=== PATIENT | female | born 1940 | race Caucasian/White ===

== ENCOUNTER 2023-06-12 09:39 | Outpatient (OUT) | payer MEDICARE, SELFPAY ==
--- NOTE | 2023-06-12 09:40 | VEIN_ITS ---
Patient Name: GOLD FERRARA MR#: [id number] : 1940 Exam Date: 06/12/2023 Ordering Doctor: DR ARAVIND NAILS M.D. RADIOLOGY REPORT PROCEDURE: FACILITY EST COMPREHENSIVE VEIN CENTER - OFFICE VISIT INITIAL COMPARISON: None. PROGRESS NOTES: [age] year old female who presents with a 3 year history of lower extremity bulging veins, stinging pain, skin discoloration, and recent onset decreased feeling in bottom of right foot. The patient's symptoms are otherwise symmetric bilaterally. There has been a progression of symptoms over time. This increases with prolonged leg dependency. The patient describes an improvement with rest, elevation, compression stockings. The patient denies any signs and symptoms to suggest arterial ischemia. The patient describes a family history of cancer; no significant vein disease. The patient has drinking and smoking history of : None. Patient has a past medical history significant for congestive heart failure, shortness of breath, obesity, hypertension, lymphoma, pulmonary emboli, deep vein thrombosis. The patient has prior history of deep venous thrombus or pulmonary embolus. See separate history and physical for medication list. Prior treatment for varicose veins. After review of nurse notes, history and physical exam I discussed at length the pathophysiology of venous hypertension and possible treatments, therapies and strategies available. We discussed at length the importance of elevating the lower extremities above the level of the heart, increased physical activity and compression stocking use. Ultrasound venous reflux study performed today was discussed at length with the patient. The report demonstrates prior ablation of right great saphenous vein. Abnormally dilated incompetent right small saphenous vein, bilateral anterior accessory saphenous veins, and left great saphenous vein.. PHYSICAL EXAM: The right leg demonstrates a few visible varicosities, a few scattered spider veins, no ulceration, mild edema, distal lower extremity skin discoloration. The left leg demonstrates several varicosities, a few scattered spider veins, old healed skin wounds which the patient describes as being due to prior medication that she was taking but has discontinued and the wounds healed, mild edema, distal lower extremity skin discoloration. Both thighs, legs and feet were symmetrically warm to the touch. Good posterior tibial and dorsalis pedis pulses were present bilaterally. VEIN/ Facility EST Comprehensive IMPRESSION: 1. Bilateral lower extremity venous insufficiency 2. Bilateral lower extremity varicose veins 3. Mild bilateral lower extremity subcutaneous edema 4. No flow significant arterial disease 5. CEAP: C4a, AP, , [place] PLAN: 1. Continued use of compression stockings 2. Elevated legs and increased physical activity symptomatic relief 3. Patient's major concern is development of numbness on bottom of right foot. I do not suspect that the patient's chronic vein disease is the causal factor. 4. Patient does not desire treatment of incompetent varicose veins in light of ongoing other health issues and if it is not going to solve the new numbness on bottom of right foot. The risks and benefits were discussed with the patient and I concur with the patient. 5. Patient will follow-up for treatment of veins if she notices increasing size of bulging veins, leg pain worsens, or there are further skin changes or development of ulcers. Nurse notes, history and physical were reviewed and confirmed, see attached forms. The nurse was present throughout the physical exam and consultation Dictated by: Alok Anderson M.D. on 06/12/2023 at 11:49 Approved by: Alok Anderson M.D. on 06/12/2023 at 12:04
--- NOTE | 2023-06-12 09:41 | VEIN_ITS ---
Patient Name: GOLD FERRARA MR#: [id number] : 1940 Exam Date: 06/12/2023 Ordering Doctor: DR ARAVIND NAILS M.D. RADIOLOGY REPORT PROCEDURE: VC EXT VENOUS REFLUX ALBERTO LMTD COMPARISON: None. INDICATIONS: I83.813 Bilateral painful varicose veins TECHNIQUE: Duplex imaging of the lower extremity to assess the deep and superficial venous system for the presence of deep or superficial venous incompetence and to document the location and severity of disease. The study includes evaluation of the great saphenous vein (GSV), anterior accessory saphenous vein (AASV) and small saphenous vein (SSV). Patient scanned in reverse Trendelenburg and standing. FINDINGS: RIGHT LOWER EXTREMITY: Saphenofemoral Junction Reflux: Yes 6.8mm 1.5 sec GSV: Diam (mm) Reflux/ Time (sec) Proximal Thigh N/A Mid Thigh N/A Distal Thigh N/A Prox Calf N/A Mid Calf N/A Saphenopopliteal Junction Reflux: 6.0mm Yes 1.7 SSV: Proximal Calf 6.0 Yes 1.2 Mid Calf 4.6 No AASV: Proximal Thigh 6.0 Yes 0.6 Mid Thigh 5.8 Yes 1.8 Distal Thigh Thrombi: No acute or chronic thrombus visualized Compressibility: Normal Flow: Normal Preforator: Dist/med calf 2.6mm with 0s reflux. Tech Note: Incompetent AASV and SSV. GSV previously treated. Patent varicose vein mid/med calf 3.9mm with 1.3s reflux. Patent varicose vein medial knee 3.3mm with 0.8s reflux. Patent varicose vein dist/med thigh 4.6mm with 2.1s reflux. LEFT LOWER EXTREMITY: Saphenofemoral Junction Reflux: Yes 9.8 mm 2.2 sec GSV: Diam (mm) Reflux/Time (sec) Proximal Thigh 6.9 Yes 2.2 Mid Thigh 5.0 Yes 1.0 Distal Thigh 5.3 Yes 2.8 Prox Calf 4.2 Yes 2.9 Mid Calf 4.0 No Saphenopopliteal Junction Relux: mm N/A SSV: Proximal Calf N/A Mid Calf N/A AASV: Proximal Thigh 6.0 Yes 0.8 Mid Thigh 4.7 Yes 1.6 Distal Thigh Thrombi: No acute or chronic thrombus visualized Compressibility: Normal Flow: Normal Ophthalmic Tech: No perforators visualized Tech Note: Incompetent AASV and GSV. SSV previously treated. Patent varicose vein prox/med calf 3.3mm with 1.4s reflux. Patent varicose vein mid/med thigh 4.8mm with 2.5s reflux. CONCLUSION: 1. Abnormally dilated and incompetent right small saphenous, right anterior accessory saphenous, left great saphenous, and left anterior accessory saphenous veins. Dictated by: Alok Anderson M.D. on 06/12/2023 at 10:37 Approved by: Alok Anderson M.D. on 06/12/2023 at 11:49
== END 2023-06-12 09:40 | disposition home or self-care (01) ==
LOC: VC 09:40
PROVIDERS: PCP Radiology Diagnostic Radiology; Visit Provider Radiology Diagnostic Radiology
DX: I83.813 Varicose veins of bilateral lower extremities with pain (principal)
CPT/HCPCS: 93970; G0463

== ENCOUNTER 2023-06-16 14:51 | Outpatient (OUT) | payer MEDICARE, SELFPAY ==
--- NOTE | 2023-06-16 | VEIN_ITS ---
Patient Name: GOLD FERRARA MR#: [id number] : 1940 Exam Date: 06/16/2023 Ordering Doctor: DR YASMANY HOUSER M.D. RADIOLOGY REPORT PROCEDURE: VC FACILITY EST LMTD VEIN CENTER - OFFICE VISIT FOLLOW UP COMPARISON: None. PROGRESS NOTES: The patient complains of bilateral leg pain with asymmetric new pain and swelling of the left medial and posterior upper to mid calf. The patient has a concern for deep vein thrombus as well as cellulitis. The patient was referred by her primary care physician for possible deep vein thrombus Ultrasound demonstrates no deep vein thrombus. Subcutaneous edema is observed. Physical exam demonstrates marked subcutaneous edema with skin thickening and extensive hemosiderin staining bilateral below knee, left greater than right. In the region of the patient's interest in the left calf there is asymmetric subcutaneous swelling. Ultrasound demonstrates no focal mass or deep vein thrombus in this region At this time I do not feel that the patient has cellulitis. The patient's pain is likely related to ongoing venous disease and subcutaneous edema possible lymphedema. The patient does not have compression stockings VEIN/ Facility EST LMTD IMPRESSION: 1. No definite evidence of cellulitis, superficial or deep vein thrombus. 2. Extensive venous disease with subcutaneous edema PLAN: Micro foam chemical ablation incompetent varicose veins Nurse notes, history and physical were reviewed and confirmed, see attached forms. The nurse was present throughout the physical exam and consultation Dictated by: Yasmany Houser MD on 06/16/2023 at 15:58 Approved by: Yasmany Houser MD on 06/16/2023 at 16:00
--- NOTE | 2023-06-16 14:56 | VEIN_ITS ---
[address] [address] Patient Name: GOLD FERRARA MRN: [id number] date: 1940 Sex: F Assigned Patient Location: Current Patient Location: Accession/Order Number: [id number] Exam Date: 06/16/2023 15:05 Report Date: 06/16/2023 15:55 At the request of: ARACELY SHOEMAKER Procedure: VC EXT Venous ALBERTO Limited EXAM: VC EXT Venous ALBERTO Limited HISTORY: M79.662 Pain in left leg COMPARISON: None. TECHNIQUE: Grayscale, color and Doppler FINDINGS: Region: Bilateral legs Thrombus: None Flow: Normal Augmentation: Normal Compressibility: Normal Other: Mild to moderate bilateral subcutaneous edema left greater than right VEIN/VC EXT Venous ALBERTO Limited IMPRESSION: No deep or superficial vein thrombus identified in the legs Electronically authenticated by: ARAVIND NAILS Date: 06/16/2023 15:55
== END 2023-06-16 14:52 | disposition home or self-care (01) ==
LOC: VC 14:51
PROVIDERS: PCP Radiology Diagnostic Radiology
DX: M79.662 Pain in left lower leg (principal); I83.813 Varicose veins of bilateral lower extremities with pain
CPT/HCPCS: 93970; G0463

== ENCOUNTER 2023-11-27 13:36 | Outpatient (OUT) | payer MEDICARE, SELFPAY ==
--- NOTE | 2023-11-27 07:34 | VEINCLINIC_ITS ---
Vital Signs 11/27/23 14:45 11/27/23 15:37 Height 5 ft 6 in Weight 113.398 kg BP 112/56 BP Location Left Brachial BP Position Sitting BP Cuff Size Adult BP Source Manual Cuff Respiration 18 Pulse 75 Pulse Source Monitor Pulse Oximetry (%) 95 Oxygen Delivery Method Room Air Varicose Veins Patient is a 83 year old female in this day who presents with varicose veins, bulging symetically. Patient in this day for microfoam chemical ablation left leg. Alok Jeong MD personally performed the services described in this documentation, as scribed by Bhavesh Dawn RN in my presence and it is both accurate and complete. Bhavesh Jeong RN, am scribing for, and in the presence of, Dr. Alok Anderson and in the presence of the patient. thigh: bilateral (bilateral symptoms), knee: bilateral, calf: bilateral, ankle: bilateral and garcia: bilateral aching, burning and tender 4 13 years Worsened in recent months: Yes standing and sitting elevating extremities and compression stockings Reports fatigue, heaviness, limb pain, edema and leg edema History of lower extremity trauma: No Superficial thrombophlebitis: No Family history of varicose veins: yes Has patient had previous lower extremity venous surgery: Yes Patient has previously received the following treatment(s) for lower extremity varicose veins: Reports laser therapy Does patient have a history of : yes Does patient intend to have future pregnancies: no Has patient had lower extremity venous scan with relux testing: Yes Support hose used: Yes Problems walking or doing physical activity: Yes How does it affect you: often has to rest and elevate legs/feet Do you walk much: No Do you stand much: Yes Review of Systems ROS Narrative Alok Jeong MD personally performed the services described in this documentation, as scribed by Bhavesh Dawn RN in my presence and it is both accurate and complete. Bhavesh Jeong RN, am scribing for, and in the presence of, Dr. Alok Anderson and in the presence of the patient. Status of ROS 10 or more systems reviewed and unremark able except as noted in history and below Cardiovascular Reports: edema Integumentary/Breast Reports: redness, skin pain, skin tenderness, skin swelling and changes in skin color Neurological Reports: weakness in extremities [facility] Medical History (Updated 11/27/23 @ 07:53 by Bhavesh Dawn) Cataract, bilateral ?H26.9 - Unspecified cataract (ICD-10) Heel spur ?M77.30 - Calcaneal spur, unspecified foot (ICD-10) Carpal tunnel syndrome ?G56.00 - Carpal tunnel syndrome, unspecified upper limb (ICD-10) Pain due to varicose veins of both lower extremities ?I83.813 - Varicose veins of bilateral lower extremities with pain (ICD-10) Depression ?F32.A - Depression, unspecified (ICD-10) Mediastinal lymphadenopathy ?R59.0 - Localized enlarged lymph nodes (ICD-10) Myelodysplastic disease ?C94.6 - Myelodysplastic disease, not elsewhere classified (ICD-10) Thrombocytosis ?D75.839 - Thrombocytosis, unspecified (ICD-10) Coronary artery disease ?I25.10 - Atherosclerotic heart disease of [place] coronary artery without angina pectoris (ICD-10) Basal cell carcinoma ?C44.91 - Basal cell carcinoma of skin, unspecified (ICD-10) Pulmonary hypertension ?I27.20 - Pulmonary hypertension, unspecified (ICD-10) Arthritis ?M19.90 - Unspecified osteoarthritis, unspecified site (ICD-10) Sleep apnea ?G47.30 - Sleep apnea, unspecified (ICD-10) Bulging disc Myeloproliferative disease ?D47.1 - Chronic myeloproliferative disease (ICD-10) Deep vein thrombosis ?I82.409 - Acute embolism and thrombosis of unspecified deep veins of unspecified lower extremity (ICD-10) Pulmonary embolism ?I26.99 - Other pulmonary embolism without acute cor pulmonale (ICD-10) Lymphoma ?C85.90 - Non-Hodgkin lymphoma, unspecified, unspecified site (ICD-10) Hypertension ?I10 - Essential (primary) hypertension (ICD-10) Surgical History (Updated 11/27/23 @ 07:53 by Bhavesh Dawn) History of total bilateral knee replacement ?Z96.653 - Presence of artificial knee joint, bilateral (ICD-10) History of bunionectomy ?Z98.890 - Other specified postprocedural states (ICD-10) Hx of tonsillectomy ?Z90.89 - Acquired absence of other organs (ICD-10) H/O: hysterectomy ?Z90.710 - Acquired absence of both cervix and uterus (ICD-10) Status post laser ablation of incompetent vein ?Z98.890 - Other specified postprocedural states (ICD-10) Family History (Updated 11/27/23 @ 07:53 by Bhavesh Dawn) Other Family history of CHF (congestive heart failure) Family history of cancer Multiple sclerosis Pain due to varicose veins of both lower extremities Social History (Updated 11/27/23 @ 07:54 by Bhavesh Dawn) Within the past year, how often did you have a drink containing alcohol: never Score interpretation: A score less than 3 is consistent with normal alcohol consumption. Smoking status: Never smoker Non-prescribed substance use: denies use Meds Home Medications and Allergies Home Medications ?Medication ?Instructions ?Recorded ?Confirmed ?Type apixaban 2.5 mg tablet (Eliquis) 2.5 mg PO BID 11/27/23 11/27/23 History ascorbic acid (vitamin C) 500 mg 500 mg PO DAILY 11/27/23 11/27/23 History chewable tablet (Acerola C) aspirin 81 mg capsule 81 mg PO DAILY 11/27/23 11/27/23 History atorvastatin 40 mg tablet (Lipitor) 40 mg PO QPM 11/27/23 11/27/23 History cefepime 2 gram solution for 1,000 mg intraperitoneal DAILY 11/27/23 11/27/23 History injection coenzyme Q10 100 mg capsule (Co 100 mg PO DAILY 11/27/23 11/27/23 History Q-10) ferrous sulfate 325 mg (65 mg 325 mg PO DAILY 11/27/23 11/27/23 History iron) tablet (Feosol) furosemide 40 mg tablet 40 mg PO DAILY 11/27/23 11/27/23 History gabapentin 300 mg capsule 300 mg PO DAILY 11/27/23 11/27/23 History hydroxyurea 500 mg capsule (Hydrea) 500 mg PO DAILY 11/27/23 11/27/23 History ibuprofen 200 mg tablet (Addaprin) 200 mg PO TID-QID PRN pain 11/27/23 11/27/23 History losartan 50 mg-hydrochlorothiazide 1 tab PO DAILY 11/27/23 11/27/23 History 12.5 mg tablet (Hyzaar) minocycline 100 mg capsule 100 mg PO DAILY 11/27/23 11/27/23 History omeprazole 20 mg capsule,delayed 20 mg PO DAILY 11/27/23 11/27/23 History release oxybutynin chloride 5 mg tablet 2.5 mg PO DAILY 11/27/23 11/27/23 History ruxolitinib 5 mg tablet (Jakafi) 5 mg PO DAILY 11/27/23 11/27/23 History spironolactone 25 mg tablet 25 mg PO DAILY 11/27/23 11/27/23 History (Aldactone) Allergies Allergy/AdvReac Type Severity Reaction Status Date / Time levofloxacin Allergy Mild Diarrhea Verified 11/27/23 08:01 Exam Narrative Exam Narrative: Alok Jeong MD personally performed the services described in this documentation, as scribed by Bhavesh Dawn RN in my presence and it is both accurate and complete. IBhavesh RN, am scribing for, and in the presence of, Dr. Alok Anderson and in the presence of the patient.. Constitutional Documenting provider has reviewed patient's vital signs: yes Common normals: oriented x3 Nutritional appearance: overweight Cardio Peripheral pulses: posterior tibial pulses present and dorsalis pedis pulses present Extremity Common normals: normal capillary refill General: edema Right lower extremity: lower leg Right lower leg: inspection and palpation Left lower extremity: lower leg Left lower leg: inspection and palpation Neuro Common normals: oriented x3 Assessment and Plan Assessment and Plan (1) Pain due to varicose veins of both lower extremities: Plan f/u evaluation with physician along with left leg limited u/s Alok Jeong MD personally performed the services described in this documentation, as scribed by Bhavesh Dawn RN in my presence and it is both accurate and complete. Bhavesh Jeong RN, am scribing for, and in the presence of, Dr. Alok Anderson and in the presence of the patient. Procedures Procedure Instructions Procedures leg microfoam chemical ablation/Varithena: Risks and benefits of the procedure were discussed at length and informed written consent was obtained.? Time-out procedure was performed and the correct patient and procedure were confirmed.? Staff present during time-out: Bhavesh Dawn RN and Alok Anderson MD.? Patient prepped and procedure performed in usual sterile fashion.? Patient was placed in Trendelenburg prior to Polidocanol/Varithena injections. Sclerosing Agent:??15cc 1% Polidocanol/Varithena Site Injected: left lecc varithena administered in to a 5mm varicose vein distal anterior lower leg 7cc varithena administered in to a 4mm varicose vein mid medial upper leg Number of Injections:? 2 The patient tolerated the procedure well without complication.? Hemostasis was obtained and thigh-high compression stocking was applied with foam pads.? Instructed patient to wear stocking for at least 96 hours and sleep with it and only remove for showering.? The patient was instructed to? wear stocking for 2 weeks.? Patient verbalizes understanding and states they will comply.? Patient was given post-procedure instructions. Patient was discharged in good condition.? Scheduled to undergo limited venous ultrasound and? exam on 12/01/2023 IAlok MD personally performed the services described in this documentation, as scribed by Bhavesh Dawn RN in my presence and it is both accurate and complete. Bhavesh Jeong RN, am scribing for, and in the presence of, Dr. Alok Anderson and in the presence of the patient.
--- NOTE | 2023-11-27 13:04 | W.VEIN ---
Discharge Plan Discharge Disposition: Home, Self-Care Outpatient Diagnostics: VC Facility EST LMTD (Routine) Timeframe: 2 Weeks Facility: [facility] - Location: Vein Center Ordered By: Alok Anderson VC EXT Venous LT Limited (Routine) Timeframe: 2 Weeks Facility: [facility] - Location: Vein Center Ordered By: Alok Anderson Follow Up Appointments: 12/01/2023 Plan of Treatment: f/u evaluation with physician along with left leg limited u/s Patient Instructions: Polidocanol (By injection) (Asclera, Varithena) Print Language: Andorran Discharge Date/Time: 11/27/23 15:41
--- NOTE | 2023-11-27 13:43 | VEIN_ITS ---
[address] [address] Patient Name: GOLD FERRARA MRN: [id number] date: 1940 Sex: F Assigned Patient Location: Current Patient Location: Accession/Order Number: [id number] Exam Date: 11/27/2023 13:43 Report Date: 11/27/2023 16:57 At the request of: ARAVIND NAILS Procedure: VC INJ Foam Sclerosant [employer] PROCEDURE: VC INJ Foam Sclerosant [employer] HISTORY: Pain due to varicose veins of bilateral legs I83.813 Pre-operative Diagnosis: CEAP class C4a venous insufficiency with pain, tenderness, edema and incompetent branch saphenous vein(s), chronic venous insufficiency [ leg secondary to venous incompetence Post-operative Diagnosis: CEAP class C4a venous insufficiency with pain, tenderness, edema and incompetent branch saphenous vein(s), chronic venous insufficiency [ leg secondary to venous incompetence Procedure Performed: 1. Ultrasound-guided microfoam chemical ablation with Varithenaregistered 2. Intraoperative ultrasound guidance Physician: Alok Anderson M.D. Anesthesia: None Indications for Procedure: 83 year old female. Symptoms including lower extremity edema, pain, recurring wounds for many years despite conservative medical therapy including medical compression stockings, exercise and analgesics. Prior procedures include endovenous laser ablation. Multiple incompetent varicosities of the left leg. Duplex scan showed reflux and enlarged diameters up to 5 mm. The patient underwent informed consent including management options where the complications of infection, bleeding, pain, and skin injury were discussed. Particular attention was spent discussing thrombus extension and deep vein thrombosis as well as the possibility of pulmonary embolus and treatment with oral or injectable blood thinners. Procedure: The patient walked to the procedure room. All applicable staff donned appropriate apparel. A procedure timeout was performed to confirm correct patient, correct extremity, correct procedure, and correct room set-up including presence of all applicable supplies, devices, and drugs. A duplex ultrasound, performed by myself confirmed the location and incompetence of branch saphenous varicosities and their course was marked on the skin together with the dilated tributaries. The extent of treatment of the vein and the associated varicosities was determined through ultrasound mapping. The skin was prepped and then punctured with a butterfly needle and advanced under ultrasound guidance. The Varithenaregistered canister was activated and the canister was primed and purged as required in the instructions for use. Varithenaregistered was drawn into a sterile syringe. Varithenaregistered was slowly administered at 0.5-1.0 cc/second with close observation by ultrasound of its course in the vessels. Total volume utilized was: 15 mL (8 mL into a 5 mm varicosity distal anterior lower leg; 7 mL into a 4 mm varicosity mid medial lower leg). Following administration of Varithenaregistered the leg was elevated and the patient was asked to repeatedly dorsiflex the ankle to limit flow of Varithenaregistered into perforating veins. Once appropriate spasm had been confirmed in the treated veins, the vascular catheter was removed from the leg and light pressure was applied over the puncture site for hemostasis. The common femoral and deep superficial veins were then evaluated for flow and compressibility prior to dressing placement. The lower extremity was kept elevated at 45 degrees above the horizontal and cording material was applied over the saphenous segments and tributaries to allow for eccentric compression over the target vessels including the targeted saphenous vein(s). A multilayer dressing was applied consisting of foam pads, coban and thigh-high 20-30 mm Hg compression elastic support hose were placed on the patient. The leg was lowered only after compression had been applied and the patient was immediately ambulatory. The patient ambulated 10 minutes under supervision and was without apparent concerns at time of release. Post-care instructions include advising patient to keep post-treatment bandages in place and dry for 48 hours, avoid extended periods of inactivity, avoid heavy exercise for one week, wear compression stockings on the treated leg continuously for two weeks, to walk daily for 10 minutes over the next month. The patient was instructed to take an anti-inflammatory medicine as needed and to follow up for color duplex scan of the Saphenous veins, the treated branch saphenous varicosities, the adjacent deep veins, and additional treatment within 7 days. PERSONNEL: Bhavesh Dawn RN Electronically authenticated by: ALOK ANDERSON Date: 11/27/2023 16:57
[2023-11-27 14:45] VITALS: BP 112/56; PULSE 75; O2SAT 95
== END 2023-11-27 15:41 | disposition home or self-care (01) ==
LOC: VC 13:37
PROVIDERS: PCP Radiology Diagnostic Radiology; Visit Provider Radiology Diagnostic Radiology
DX: I83.813 Varicose veins of bilateral lower extremities with pain (principal)
CPT/HCPCS: 36466

== ENCOUNTER 2023-12-01 12:56 | Outpatient (OUT) | payer MEDICARE, SELFPAY ==
--- NOTE | 2023-12-01 07:27 | V.VEINS.HP ---
Vital Signs 12/01/23 13:00 Height 5 ft 6 in Weight 113.4 kg BMI 40.4 Varicose Veins Patient in today for follow up ultrasound of left lower extremity following treatment of Varithena/microfoam completed on 11/27/23. Yasmany Jeong MD personally performed the services described in this documentation, as scribed by Cherry Vasquez RDMS in my presence and it is both accurate and complete. Cherry Jeong RDMS, am scribing for, and in the presence of, Dr. Yasmany Houser and in the presence of the patient. thigh: bilateral (bilateral symptoms), knee: bilateral, calf: bilateral, ankle: bilateral and garcia: bilateral aching, burning and tender 4 13 years Worsened in recent months: Yes standing and sitting elevating extremities and compression stockings Reports fatigue, heaviness, limb pain, edema and leg edema History of lower extremity trauma: No Superficial thrombophlebitis: No Family history of varicose veins: yes Has patient had previous lower extremity venous surgery: Yes Patient has previously received the following treatment(s) for lower extremity varicose veins: Reports laser therapy Does patient have a history of : yes Does patient intend to have future pregnancies: no Has patient had lower extremity venous scan with relux testing: Yes Support hose used: Yes Problems walking or doing physical activity: Yes How does it affect you: often has to rest and elevate legs/feet Do you walk much: No Do you stand much: Yes Review of Systems ROS Narrative Yasmany Jeong MD personally performed the services described in this documentation, as scribed by Cherry Vasquez RDMS in my presence and it is both accurate and complete. Cherry Jeong RDMS, am scribing for, and in the presence of, Dr. Yasmany Houser and in the presence of the patient. Status of ROS 10 or more systems reviewed and unremarkable except as noted in history and below Cardiovascular Reports: edema Integumentary/Breast Reports: redness, skin pain, skin tenderness, skin swelling and changes in skin color Neurological Reports: weakness in extremities [facility] Medical History (Updated 12/01/23 @ 14:54 by Cherry Vasquez) Phlebitis and thrombophlebitis of superficial vessels of left lower extremity ?I80.02 - Phlebitis and thrombophlebitis of superficial vessels of left lower extremity (ICD-10) Cataract, bilateral ?H26.9 - Unspecified cataract (ICD-10) Heel spur ?M77.30 - Calcaneal spur, unspecified foot (ICD-10) Carpal tunnel syndrome ?G56.00 - Carpal tunnel syndrome, unspecified upper limb (ICD-10) Pain due to varicose veins of both lower extremities ?I83.813 - Varicose veins of bilateral lower extremities with pain (ICD-10) Depression ?F32.A - Depression, unspecified (ICD-10) Mediastinal lymphadenopathy ?R59.0 - Localized enlarged lymph nodes (ICD-10) Myelodysplastic disease ?C94.6 - Myelodysplastic disease, not elsewhere classified (ICD-10) Thrombocytosis ?D75.839 - Thrombocytosis, unspecified (ICD-10) Coronary artery disease ?I25.10 - Atherosclerotic heart disease of [place] coronary artery without angina pectoris (ICD-10) Basal cell carcinoma ?C44.91 - Basal cell carcinoma of skin, unspecified (ICD-10) Pulmonary hypertension ?I27.20 - Pulmonary hypertension, unspecified (ICD-10) Arthritis ?M19.90 - Unspecified osteoarthritis, unspecified site (ICD-10) Sleep apnea ?G47.30 - Sleep apnea, unspecified (ICD-10) Bulging disc Myeloproliferative disease ?D47.1 - Chronic myeloproliferative disease (ICD-10) Deep vein thrombosis ?I82.409 - Acute embolism and thrombosis of unspecified deep veins of unspecified lower extremity (ICD-10) Pulmonary embolism ?I26.99 - Other pulmonary embolism without acute cor pulmonale (ICD-10) Lymphoma ?C85.90 - Non-Hodgkin lymphoma, unspecified, unspecified site (ICD-10) Hypertension ?I10 - Essential (primary) hypertension (ICD-10) Surgical History (Updated 11/27/23 @ 07:53 by Bhavesh Dawn) History of total bilateral knee replacement ?Z96.653 - Presence of artificial knee joint, bilateral (ICD-10) History of bunionectomy ?Z98.890 - Other specified postprocedural states (ICD-10) Hx of tonsillectomy ?Z90.89 - Acquired absence of other organs (ICD-10) H/O: hysterectomy ?Z90.710 - Acquired absence of both cervix and uterus (ICD-10) Status post laser ablation of incompetent vein ?Z98.890 - Other specified postprocedural states (ICD-10) Family History (Updated 11/27/23 @ 07:53 by Bhavesh Dawn) Other Family history of CHF (congestive heart failure) Family history of cancer Multiple sclerosis Pain due to varicose veins of both lower extremities Social History (Updated 11/27/23 @ 07:54 by Bhavesh Dawn) Within the past year, how often did you have a drink containing alcohol: never Score interpretation: A score less than 3 is consistent with normal alcohol consumption. Smoking status: Never smoker Non-prescribed substance use: denies use Meds Home Medications and Allergies Home Medications ?Medication ?Instructions ?Recorded ?Confirmed ?Type apixaban 2.5 mg tablet (Eliquis) 2.5 mg PO BID 11/27/23 11/27/23 History ascorbic acid (vitamin C) 500 mg 500 mg PO DAILY 11/27/23 11/27/23 History chewable tablet (Acerola C) aspirin 81 mg capsule 81 mg PO DAILY 11/27/23 11/27/23 History atorvastatin 40 mg tablet (Lipitor) 40 mg PO QPM 11/27/23 11/27/23 History cefepime 2 gram solution for 1,000 mg intraperitoneal DAILY 11/27/23 11/27/23 History injection coenzyme Q10 100 mg capsule (Co 100 mg PO DAILY 11/27/23 11/27/23 History Q-10) ferrous sulfate 325 mg (65 mg 325 mg PO DAILY 11/27/23 11/27/23 History iron) tablet (Feosol) furosemide 40 mg tablet 40 mg PO DAILY 11/27/23 11/27/23 History gabapentin 300 mg capsule 300 mg PO DAILY 11/27/23 11/27/23 History hydroxyurea 500 mg capsule (Hydrea) 500 mg PO DAILY 11/27/23 11/27/23 History ibuprofen 200 mg tablet (Addaprin) 200 mg PO TID-QID PRN pain 11/27/23 11/27/23 History losartan 50 mg-hydrochlorothiazide 1 tab PO DAILY 11/27/23 11/27/23 History 12.5 mg tablet (Hyzaar) minocycline 100 mg capsule 100 mg PO DAILY 11/27/23 11/27/23 History omeprazole 20 mg capsule,delayed 20 mg PO DAILY 11/27/23 11/27/23 History release oxybutynin chloride 5 mg tablet 2.5 mg PO DAILY 11/27/23 11/27/23 History ruxolitinib 5 mg tablet (Jakafi) 5 mg PO DAILY 11/27/23 11/27/23 History spironolactone 25 mg tablet 25 mg PO DAILY 11/27/23 11/27/23 History (Aldactone) Allergies Allergy/AdvReac Type Severity Reaction Status Date / Time levofloxacin Allergy Mild Diarrhea Verified 11/27/23 08:01 Exam Narrative Exam Narrative: Yasmany Jeong MD personally performed the services described in this documentation, as scribed by Cherry Vasquez RDMS in my presence and it is both accurate and complete. Cherry Jeong RDMS, am scribing for, and in the presence of, Dr. Yasmany Houser and in the presence of the patient. Constitutional Documenting provider has reviewed patient's vital signs: yes Common normals: oriented x3 Nutritional appearance: overweight Cardio Peripheral pulses: posterior tibial pulses present and dorsalis pedis pulses present Extremity Common normals: normal capillary refill General: edema Right lower extremity: lower leg Right lower leg: inspection and palpation Left lower extremity: lower leg Left lower leg: inspection and palpation Neuro Common normals: oriented x3 Results Imaging Venous US: Radiologist's impression: Chemically induced thrombus in multiple varicose veins left leg. Yasmany Jeong MD personally performed the services described in this documentation, as scribed by Cherry Vasquez RDMS in my presence and it is both accurate and complete. Cherry Jeong RDMS, am scribing for, and in the presence of, Dr. Yasmany Houser and in the presence of the patient. Assessment and Plan Assessment and Plan (1) Phlebitis and thrombophlebitis of superficial vessels of left lower extremity: Plan Plan is for patient to return for EVLT of left GSV. Procedure will need to be pre authorized before proceeding. Yasmany Jeong MD personally performed the services described in this documentation, as scribed by Cherry Vasquez RDMS in my presence and it is both accurate and complete. Cherry Jeong RDMS am scribing for, and in the presence of, Dr. Yasmany Houser and in the presence of the patient.
--- NOTE | 2023-12-01 12:58 | VEIN_ITS ---
Patient Name: GOLD FERRARA MR#: [id number] : 1940 Exam Date: 12/01/2023 Ordering Doctor: DR FAVIOLA TERRELL M.D. RADIOLOGY REPORT PROCEDURE: VC EXT VENOUS LT LIMITED COMPARISON: None. INDICATIONS: I80.02 - Phlebitis and thrombophlebitis of superficial veins left leg TECHNIQUE: Lower extremity martinez scale and Duplex Doppler evaluation of the deep venous system from the inguinal ligament through the calf veins. FINDINGS: REGION: Left lower extremity. THROMBI: Negative for DVT. Chemically induced thrombus in multiple varicose veins left leg. Thrombus in mid-distal AASV in thigh. COMPRESSIBILITY: Non-compressible segments corresponding to thrombus FLOW: Areas of no flow corresponding to thrombus CONCLUSION: 1. Post ablation occlusion of treated left leg incompetent varicose veins Dictated by: Yasmany Houser MD on 12/01/2023 at 13:58 Approved by: Yasmany Houser MD on 12/01/2023 at 13:59
--- NOTE | 2023-12-01 12:58 | VEIN_ITS ---
Patient Name: GOLD FERRARA MR#: [id number] : 1940 Exam Date: 12/01/2023 Ordering Doctor: DR FAVIOLA TERRELL M.D. RADIOLOGY REPORT PROCEDURE: [facility] EST LMTD VEIN [facility] - OFFICE VISIT FOLLOW UP COMPARISON: [facility], 06/16/2023. PROGRESS NOTES: The patient reports no significant problems following micro chemical ablation of left leg incompetent varicose veins. The patient does complain of bilateral ulcerations along the lateral ankle. The patient has seen multiple defined specialties vascular surgery no significant improvement with treatments our recommendations. The patient presents here with the same chief complaint from her initial exam in May. I explained to the patient at length that her ulcerations are of unknown etiology. Her venous disease likely is contributory but they are not the result of a single etiology. Resolution of her vein disease should improve but not definitively will resolve her ulcerations. The patient's questions were discussed and answered. Risks benefits and alternatives of treatments were explained again. Physical exam demonstrates 2 areas of bruising in the medial distal left thigh related to injection. Thrombosed varicose veins can be palpated. No erythema or warmth to suggest cellulitis or thrombophlebitis. No active ulceration Review of the ultrasound performed the same day demonstrates occlusive thrombus extending throughout the treated left leg varicose veins. Bilateral incompetent varicose veins noted. Incompetent left great saphenous vein. The patient expressed a desire to proceed with treatment of incompetent left great saphenous vein with intravenous laser ablation. [facility]: 1. Successful ablation of treated left leg varicose veins. 2. Persistent incompetent left great saphenous vein. PLAN: Intravenous laser ablation left great saphenous vein Micro foam chemical ablation, right before left Nurse notes, history and physical were reviewed and confirmed, see attached forms. The nurse was present throughout the physical exam and consultation Dictated by: Yasmany Houser MD on 12/01/2023 at 15:08 Approved by: Yasmany Houser MD on 12/01/2023 at 15:10
[2023-12-01 13:00] VITALS: BMI 40.4
--- NOTE | 2023-12-01 14:58 | W.VEIN ---
Discharge Plan Discharge Disposition: Home, Self-Care Outpatient Diagnostics: VC Endovenous Ablation 1VeinLT (Routine) Timeframe: 2 Weeks Facility: [facility] - Location: Vein Center Ordered By: Yasmany Houser Plan of Treatment: EVLT of left GSV EVLT Tumescent Anesthesia: 500 mL 0.9% NS with 20 mL 1% Lidocaine and 10 mL 8.4% NAHCO3 Buffered Local Anesthesia: 10 mL of 1% Lidocaine Buffered Print Language: Cypriot Discharge Date/Time: 12/01/23 15:01
== END 2023-12-01 15:01 | disposition home or self-care (01) ==
PROVIDERS: PCP Radiology Diagnostic Radiology; Visit Provider Radiology Diagnostic Radiology
DX: I80.02 Phlebitis and thrombophlebitis of superficial vessels of left lower extremity (principal)
CPT/HCPCS: 93971; G0463

== ENCOUNTER 2023-12-04 10:12 | Outpatient (OUT) | payer MEDICARE, SELFPAY ==
--- NOTE | 2023-12-03 08:58 | VEINCLINIC_ITS ---
Vital Signs 12/04/23 11:15 12/04/23 11:18 Height 5 ft 6 in Weight 250 kg BP 138/68 BP Location Right Brachial BP Position Sitting BP Cuff Size Adult BP Source Manual Cuff Respiration 20 Pulse 81 Pulse Source Monitor Pulse Oximetry (%) 95 Oxygen Delivery Method Room Air Comment The patient's blood pressure is elevated. Varicose Veins Patient in today for microfoam chemical ablation Yasmany Jeong MD personally performed the services described in this documentation, as scribed by Bhavesh Dawn RN in my presence and it is both accurate and complete. Bhavesh Jeong RN, am scribing for, and in the presence of, Dr. Yasmany Houser and in the presence of the patient. thigh: bilateral (bilateral symptoms), knee: bilateral, calf: bilateral, ankle: bilateral and garcia: bilateral aching, burning and tender 4 13 years Worsened in recent months: Yes standing and sitting elevating extremities and compression stockings Reports fatigue, heaviness, limb pain, edema and leg edema History of lower extremity trauma: No Superficial thrombophlebitis: No Family history of varicose veins: yes Has patient had previous lower extremity venous surgery: Yes Patient has previously received the following treatment(s) for lower extremity varicose veins: Reports laser therapy Does patient have a history of : yes Does patient intend to have future pregnancies: no Has patient had lower extremity venous scan with relux testing: Yes Support hose used: Yes Problems walking or doing physical activity: Yes How does it affect you: often has to rest and elevate legs/feet Do you walk much: No Do you stand much: Yes Review of Systems ROS Narrative Yasmany Jeong MD personally performed the services described in this documentation, as scribed by Bhavesh Dawn RN in my presence and it is both accurate and complete. Bhavesh Jeong RN, am scribing for, and in the presence of, Dr. Yasmany Houser and in the presence of the patient. Status of ROS 10 or more systems reviewed and unremark able except as noted in history and below Cardiovascular Reports: edema Integumentary/Breast Reports: redness, skin pain, skin tenderness, skin swelling and changes in skin color Neurological Reports: weakness in extremities [facility] Medical History (Updated 12/01/23 @ 14:54 by Cherry Vasquez) Phlebitis and thrombophlebitis of superficial vessels of left lower extremity ?I80.02 - Phlebitis and thrombophlebitis of superficial vessels of left lower extremity (ICD-10) Cataract, bilateral ?H26.9 - Unspecified cataract (ICD-10) Heel spur ?M77.30 - Calcaneal spur, unspecified foot (ICD-10) Carpal tunnel syndrome ?G56.00 - Carpal tunnel syndrome, unspecified upper limb (ICD-10) Pain due to varicose veins of both lower extremities ?I83.813 - Varicose veins of bilateral lower extremities with pain (ICD-10) Depression ?F32.A - Depression, unspecified (ICD-10) Mediastinal lymphadenopathy ?R59.0 - Localized enlarged lymph nodes (ICD-10) Myelodysplastic disease ?C94.6 - Myelodysplastic disease, not elsewhere classified (ICD-10) Thrombocytosis ?D75.839 - Thrombocytosis, unspecified (ICD-10) Coronary artery disease ?I25.10 - Atherosclerotic heart disease of [place] coronary artery without angina pectoris (ICD-10) Basal cell carcinoma ?C44.91 - Basal cell carcinoma of skin, unspecified (ICD-10) Pulmonary hypertension ?I27.20 - Pulmonary hypertension, unspecified (ICD-10) Arthritis ?M19.90 - Unspecified osteoarthritis, unspecified site (ICD-10) Sleep apnea ?G47.30 - Sleep apnea, unspecified (ICD-10) Bulging disc Myeloproliferative disease ?D47.1 - Chronic myeloproliferative disease (ICD-10) Deep vein thrombosis ?I82.409 - Acute embolism and thrombosis of unspecified deep veins of unspecified lower extremity (ICD-10) Pulmonary embolism ?I26.99 - Other pulmonary embolism without acute cor pulmonale (ICD-10) Lymphoma ?C85.90 - Non-Hodgkin lymphoma, unspecified, unspecified site (ICD-10) Hypertension ?I10 - Essential (primary) hypertension (ICD-10) Surgical History (Updated 12/04/23 @ 11:19 by Bhavesh Dawn) S/P sclerotherapy of varicose veins ?Z98.890 - Other specified postprocedural states (ICD-10) ?Z86.79 - Personal history of other diseases of the circulatory system (ICD- 10) History of total bilateral knee replacement ?Z96.653 - Presence of artificial knee joint, bilateral (ICD-10) History of bunionectomy ?Z98.890 - Other specified postprocedural states (ICD-10) Hx of tonsillectomy ?Z90.89 - Acquired absence of other organs (ICD-10) H/O: hysterectomy ?Z90.710 - Acquired absence of both cervix and uterus (ICD-10) Status post laser ablation of incompetent vein ?Z98.890 - Other specified postprocedural states (ICD-10) Family History (Updated 11/27/23 @ 07:53 by Bhavesh Dawn) Other Family history of CHF (congestive heart failure) Family history of cancer Multiple sclerosis Pain due to varicose veins of both lower extremities Social History (Updated 11/27/23 @ 07:54 by Bhavesh Dawn) Within the past year, how often did you have a drink containing alcohol: never Score interpretation: A score less than 3 is consistent with normal alcohol consumption. Smoking status: Never smoker Non-prescribed substance use: denies use Meds Home Medications and Allergies Home Medications ?Medication ?Instructions ?Recorded ?Confirmed ?Type apixaban 2.5 mg tablet (Eliquis) 2.5 mg PO BID 11/27/23 11/27/23 History ascorbic acid (vitamin C) 500 mg 500 mg PO DAILY 11/27/23 11/27/23 History chewable tablet (Acerola C) aspirin 81 mg capsule 81 mg PO DAILY 11/27/23 11/27/23 History atorvastatin 40 mg tablet (Lipitor) 40 mg PO QPM 11/27/23 11/27/23 History cefepime 2 gram solution for 1,000 mg intraperitoneal DAILY 11/27/23 11/27/23 History injection coenzyme Q10 100 mg capsule (Co 100 mg PO DAILY 11/27/23 11/27/23 History Q-10) ferrous sulfate 325 mg (65 mg 325 mg PO DAILY 11/27/23 11/27/23 History iron) tablet (Feosol) furosemide 40 mg tablet 40 mg PO DAILY 11/27/23 11/27/23 History gabapentin 300 mg capsule 300 mg PO DAILY 11/27/23 11/27/23 History hydroxyurea 500 mg capsule (Hydrea) 500 mg PO DAILY 11/27/23 11/27/23 History ibuprofen 200 mg tablet (Addaprin) 200 mg PO TID-QID PRN pain 11/27/23 11/27/23 History losartan 50 mg-hydrochlorothiazide 1 tab PO DAILY 11/27/23 11/27/23 History 12.5 mg tablet (Hyzaar) minocycline 100 mg capsule 100 mg PO DAILY 11/27/23 11/27/23 History omeprazole 20 mg capsule,delayed 20 mg PO DAILY 11/27/23 11/27/23 History release oxybutynin chloride 5 mg tablet 2.5 mg PO DAILY 11/27/23 11/27/23 History ruxolitinib 5 mg tablet (Jakafi) 5 mg PO DAILY 11/27/23 11/27/23 History spironolactone 25 mg tablet 25 mg PO DAILY 11/27/23 11/27/23 History (Aldactone) Allergies Allergy/AdvReac Type Severity Reaction Status Date / Time levofloxacin Allergy Mild Diarrhea Verified 11/27/23 08:01 Assessment and Plan Assessment and Plan (1) Pain due to varicose veins of both lower extremities: Plan f/u evaluation with physician along with right leg limited u/s I, Yasmany Houser MD personally performed the services described in this documentation, as scribed by Bhavesh Dawn RN in my presence and it is both accurate and complete. Bhavesh Jeong RN, am scribing for, and in the presence of, Dr. Yasmany Houser and in the presence of the patient. Procedures Procedure Instructions Procedures Right leg microfoam chemical ablation/Varithena: Risks and benefits of the procedure were discussed at length and informed written consent was obtained.? Time-out procedure was performed and the correct patient and procedure were confirmed.? Staff present during time-out: Bhavesh Dawn RN and Yasmany Houser MD.? Patient prepped and procedure performed in usual sterile fashion.? Patient was placed in Trendelenburg prior to Polidocanol/Varithena injections. Sclerosing Agent:?? 15cc 1% Polidocanol/Varithena Site Injected: Right lecc varithena administered in to a 5mm varicose vein distal medial right lower leg 4cc varithena administered in to a 4mm varicose vein proximal right anterior lower leg 2cc varithena administered in to a medial right foot 2cc varithena administered in to a lateral right foot Number of Injections:? 4 The patient tolerated the procedure well without complication.? Hemostasis was obtained and thigh-high compression stocking was applied with foam pads.? Instructed patient to wear stocking for at least 96 hours and sleep with it and only remove for showering.? The patient was instructed to? wear stocking for 2 weeks.? Patient verbalizes understanding and states they will comply.? Patient was given post-procedure instructions. Patient was discharged in good condition.? Scheduled to undergo limited venous ultrasound and? exam on 12/10/2023 IYasmany MD personally performed the services described in this documentation, as scribed by Bhavesh Dawn RN in my presence and it is both accurate and complete. IBhavesh RN, am scribing for, and in the presence of, Dr. Yasmany Houser and in the presence of the patient.
--- NOTE | 2023-12-03 16:01 | P.DS_ITS ---
Discharge Plan Discharge Disposition: Home, Self-Care Outpatient Diagnostics: VC Facility EST LMTD (Routine) Timeframe: 2 Weeks Facility: [facility] - Location: Vein Center Ordered By: Yasmany Houser VC EXT Venous RT LMTD (Routine) Timeframe: 2 Weeks Facility: [facility] - Location: Vein Center Ordered By: Yasmany Houser Follow Up Appointments: 12/10/2023 Plan of Treatment: f/u evaluation with physician along with limited u/s Patient Instructions: Polidocanol (By injection) (Debra Price) Print Language: Palauan Discharge Date/Time: 12/04/23 11:16
--- NOTE | 2023-12-04 10:18 | VEIN_ITS ---
[address] [address] Patient Name: GOLD FERRARA MRN: [id number] date: 1940 Sex: F Assigned Patient Location: Current Patient Location: Accession/Order Number: [id number] Exam Date: 12/04/2023 10:25 Report Date: 12/04/2023 11:47 At the request of: ARAVIND NAILS Procedure: VC INJ Foam Sclerosant WUS CORPORATE SAFETY DIRECTOR PROCEDURE: VC INJ Foam Sclerosant WUS CORPORATE SAFETY DIRECTOR COMPARISON: None. HISTORY: I83.813 - Varicose veins of bilateral lower extremities w... Pre-operative Diagnosis: CEAP class C4 venous insufficiency with pain, tenderness, edema and incompetent right saphenous and varicose vein(s), chronic venous insufficiency , right leg secondary to venous incompetence Post-operative Diagnosis: CEAP class C4 venous insufficiency with pain, tenderness, edema and incompetent right saphenous and varicose vein(s), chronic venous insufficiency , right leg secondary to venous incompetence Procedure Performed: 1. Ultrasound-guided microfoam chemical ablation with Varithenaregistered 2. Intraoperative ultrasound guidance Anesthesia: None Indications for Procedure: 83-year-old female who presents with a long history of lower extremity pain and swelling varicose veins culminating in a nonhealing venous stasis ulcerations of the ankles. The patient failed cervical medical therapy including medical compression stockings, exercise and analgesics. Prior procedures include endovenous laser ablation. Multiple incompetent varicosities of the right leg. Duplex scan showed reflux and enlarged diameters up to 5 mm. The patient underwent informed consent including management options where the complications of infection, bleeding, pain, and skin injury were discussed. Particular attention was spent discussing thrombus extension and deep vein thrombosis as well as the possibility of pulmonary embolus and treatment with oral or injectable blood thinners. Procedure: The patient walked to the procedure room. All applicable staff donned appropriate apparel. A procedure timeout was performed to confirm correct patient, correct extremity, correct procedure, and correct room set-up including presence of all applicable supplies, devices, and drugs. A duplex ultrasound, performed by myself confirmed the location and incompetence of branch saphenous varicosities and their course was marked on the skin together with the dilated tributaries. The extent of treatment of the vein and the associated varicosities was determined through ultrasound mapping. The skin was prepped and then punctured with a butterfly needle and advanced under ultrasound guidance. The Varithenaregistered canister was activated and the canister was primed and purged as required in the instructions for use. Varithenaregistered was drawn into a sterile syringe. The following injections were made: 8 cc injected into a 5 mm varicose vein distal medial right lower leg 4 cc injected into a 4 mm varicose vein proximal anterior right lower leg 2 cc injected into a 3 mm varicose vein medial foot 2 cc injected into a 3 mm varicose vein lateral foot Varithenaregistered was slowly administered at 0.5-1.0 cc/second with close observation by ultrasound of its course in the vessels. Total volume utilized was: 15cc. Following administration of Varithenaregistered the leg was elevated and the patient was asked to repeatedly dorsiflex the ankle to limit flow of Varithenaregistered into perforating veins. Once appropriate spasm had been confirmed in the treated veins, the vascular catheter was removed from the leg and light pressure was applied over the puncture site for hemostasis. The common femoral and deep superficial veins were then evaluated for flow and compressibility prior to dressing placement. The lower extremity was kept elevated at 45 degrees above the horizontal and cording material was applied over the saphenous segments and tributaries to allow for eccentric compression over the target vessels including the targeted saphenous vein(s). A multilayer dressing was applied consisting of foam pads, coban and thigh-high 20-30 mm Hg compression elastic support hose were placed on the patient. The leg was lowered only after compression had been applied and the patient was immediately ambulatory. The patient ambulated 10 minutes under supervision and was without apparent concerns at time of release. Post-care instructions include advising patient to keep post-treatment bandages in place and dry for 48 hours, avoid extended periods of inactivity, avoid heavy exercise for one week, wear compression stockings on the treated leg continuously for two weeks, to walk daily for 10 minutes over the next month. The patient was instructed to take an anti-inflammatory medicine as needed and to follow up for color duplex scan of the Saphenous veins, the treated branch saphenous varicosities, the adjacent deep veins, and additional treatment within 7 days. PERSONNEL: Bhavesh Dawn RN Electronically authenticated by: ARAVIND NAILS Date: 12/04/2023 11:47
[2023-12-04 11:18] VITALS: BP 138/68; PULSE 81; O2SAT 95
== END 2023-12-04 11:16 | disposition home or self-care (01) ==
LOC: VC 10:12
PROVIDERS: PCP Radiology Diagnostic Radiology; Visit Provider Radiology Diagnostic Radiology
DX: I83.813 Varicose veins of bilateral lower extremities with pain (principal)
CPT/HCPCS: 36466

== ENCOUNTER 2023-12-12 10:51 | Outpatient (OUT) | payer MEDICARE, SELFPAY ==
--- NOTE | 2023-12-12 07:49 | VEINCLINIC_ITS ---
Vital Signs 12/12/23 07:50 Height 5 ft 6 in Weight 113 kg BMI 40.2 Varicose Veins Patient in today for follow up ultrasound post microfoam chemical ablation left leg. Yasmany Jeong MD personally performed the services described in this documentation, as scribed by Sultana Ji RVT, RDMS in my presence and it is both accurate and complete. Sultana Jeong RVT, RDMS, am scribing for, and in the presence of, Dr. Yasmany Houser and in the presence of the patient. thigh: bilateral (bilateral symptoms), knee: bilateral, calf: bilateral, ankle: bilateral and garcia: bilateral aching, burning and tender 4 13 years Worsened in recent months: Yes standing and sitting elevating extremities and compression stockings Reports fatigue, heaviness, limb pain, edema and leg edema History of lower extremity trauma: No Superficial thrombophlebitis: No Family history of varicose veins: yes Has patient had previous lower extremity venous surgery: Yes Patient has previously received the following treatment(s) for lower extremity varicose veins: Reports laser therapy Does patient have a history of : yes Does patient intend to have future pregnancies: no Has patient had lower extremity venous scan with relux testing: Yes Support hose used: Yes Problems walking or doing physical activity: Yes How does it affect you: often has to rest and elevate legs/feet Do you walk much: No Do you stand much: Yes Review of Systems ROS Narrative Yasmany Jeong MD personally performed the services described in this documentation, as scribed by Sultana Ji RVT, RDMS in my presence and it is both accurate and complete. ISultana RVT, RDMS, am scribing for, and in the presence of, Dr. Yasmany Houser and in the presence of the patient. Status of ROS 10 or more systems reviewed and unremark able except as noted in history and below Cardiovascular Reports: edema Integumentary/Breast Reports: redness, skin pain, skin tenderness, skin swelling and changes in skin color Neurological Reports: weakness in extremities [facility] Medical History (Updated 12/01/23 @ 14:54 by Cherry Vasquez) Phlebitis and thrombophlebitis of superficial vessels of left lower extremity ?I80.02 - Phlebitis and thrombophlebitis of superficial vessels of left lower extremity (ICD-10) Cataract, bilateral ?H26.9 - Unspecified cataract (ICD-10) Heel spur ?M77.30 - Calcaneal spur, unspecified foot (ICD-10) Carpal tunnel syndrome ?G56.00 - Carpal tunnel syndrome, unspecified upper limb (ICD-10) Pain due to varicose veins of both lower extremities ?I83.813 - Varicose veins of bilateral lower extremities with pain (ICD-10) Depression ?F32.A - Depression, unspecified (ICD-10) Mediastinal lymphadenopathy ?R59.0 - Localized enlarged lymph nodes (ICD-10) Myelodysplastic disease ?C94.6 - Myelodysplastic disease, not elsewhere classified (ICD-10) Thrombocytosis ?D75.839 - Thrombocytosis, unspecified (ICD-10) Coronary artery disease ?I25.10 - Atherosclerotic heart disease of [place] coronary artery without angina pectoris (ICD-10) Basal cell carcinoma ?C44.91 - Basal cell carcinoma of skin, unspecified (ICD-10) Pulmonary hypertension ?I27.20 - Pulmonary hypertension, unspecified (ICD-10) Arthritis ?M19.90 - Unspecified osteoarthritis, unspecified site (ICD-10) Sleep apnea ?G47.30 - Sleep apnea, unspecified (ICD-10) Bulging disc Myeloproliferative disease ?D47.1 - Chronic myeloproliferative disease (ICD-10) Deep vein thrombosis ?I82.409 - Acute embolism and thrombosis of unspecified deep veins of unspecified lower extremity (ICD-10) Pulmonary embolism ?I26.99 - Other pulmonary embolism without acute cor pulmonale (ICD-10) Lymphoma ?C85.90 - Non-Hodgkin lymphoma, unspecified, unspecified site (ICD-10) Hypertension ?I10 - Essential (primary) hypertension (ICD-10) Surgical History (Updated 12/04/23 @ 11:19 by Bhavesh Dawn) S/P sclerotherapy of varicose veins ?Z98.890 - Other specified postprocedural states (ICD-10) ?Z86.79 - Personal history of other diseases of the circulatory system (ICD- 10) History of total bilateral knee replacement ?Z96.653 - Presence of artificial knee joint, bilateral (ICD-10) History of bunionectomy ?Z98.890 - Other specified postprocedural states (ICD-10) Hx of tonsillectomy ?Z90.89 - Acquired absence of other organs (ICD-10) H/O: hysterectomy ?Z90.710 - Acquired absence of both cervix and uterus (ICD-10) Status post laser ablation of incompetent vein ?Z98.890 - Other specified postprocedural states (ICD-10) Family History (Updated 11/27/23 @ 07:53 by Bhavesh Dawn) Other Family history of CHF (congestive heart failure) Family history of cancer Multiple sclerosis Pain due to varicose veins of both lower extremities Social History (Updated 11/27/23 @ 07:54 by Bhavesh Dawn) Within the past year, how often did you have a drink containing alcohol: never Score interpretation: A score less than 3 is consistent with normal alcohol consumption. Smoking status: Never smoker Non-prescribed substance use: denies use Meds Home Medications and Allergies Home Medications ?Medication ?Instructions ?Recorded ?Confirmed ?Type apixaban 2.5 mg tablet (Eliquis) 2.5 mg PO BID 11/27/23 11/27/23 History ascorbic acid (vitamin C) 500 mg 500 mg PO DAILY 11/27/23 11/27/23 History chewable tablet (Acerola C) aspirin 81 mg capsule 81 mg PO DAILY 11/27/23 11/27/23 History atorvastatin 40 mg tablet (Lipitor) 40 mg PO QPM 11/27/23 11/27/23 History cefepime 2 gram solution for 1,000 mg intraperitoneal DAILY 11/27/23 11/27/23 History injection coenzyme Q10 100 mg capsule (Co 100 mg PO DAILY 11/27/23 11/27/23 History Q-10) ferrous sulfate 325 mg (65 mg 325 mg PO DAILY 11/27/23 11/27/23 History iron) tablet (Feosol) furosemide 40 mg tablet 40 mg PO DAILY 11/27/23 11/27/23 History gabapentin 300 mg capsule 300 mg PO DAILY 11/27/23 11/27/23 History hydroxyurea 500 mg capsule (Hydrea) 500 mg PO DAILY 11/27/23 11/27/23 History ibuprofen 200 mg tablet (Addaprin) 200 mg PO TID-QID PRN pain 11/27/23 11/27/23 History losartan 50 mg-hydrochlorothiazide 1 tab PO DAILY 11/27/23 11/27/23 History 12.5 mg tablet (Hyzaar) minocycline 100 mg capsule 100 mg PO DAILY 11/27/23 11/27/23 History omeprazole 20 mg capsule,delayed 20 mg PO DAILY 11/27/23 11/27/23 History release oxybutynin chloride 5 mg tablet 2.5 mg PO DAILY 11/27/23 11/27/23 History ruxolitinib 5 mg tablet (Jakafi) 5 mg PO DAILY 11/27/23 11/27/23 History spironolactone 25 mg tablet 25 mg PO DAILY 11/27/23 11/27/23 History (Aldactone) Allergies Allergy/AdvReac Type Severity Reaction Status Date / Time levofloxacin Allergy Mild Diarrhea Verified 11/27/23 08:01 Exam Narrative Exam Narrative: IYasmany MD personally performed the services described in this documentation, as scribed by Sultana Ji RVT, RDMS in my presence and it is both accurate and complete. ISultana RVT, RDMS, am scribing for, and in the presence of, Dr. Yasmany Houser and in the presence of the patient. Constitutional Documenting provider has reviewed patient's vital signs: yes Common normals: oriented x3 Nutritional appearance: overweight Cardio Peripheral pulses: posterior tibial pulses present and dorsalis pedis pulses present Extremity Common normals: normal capillary refill General: edema Right lower extremity: lower leg Right lower leg: inspection and palpation Left lower extremity: lower leg Left lower leg: inspection and palpation Neuro Common normals: oriented x3 Results Imaging Venous US: Radiologist's impression: The ultrasound demonstrates Positive for DVT in 8 - 10 cm segment of PTV from mid to distal calf. Varithena induced thrombus visualized at mid/med calf and mid/lat calf. Assessment and Plan Assessment and Plan (1) Phlebitis and thrombophlebitis of superficial vessels of left lower extremity: Plan Patient in today for follow up ultrasound of lower extremity following treatment of Varithena/microfoam completed on 12/05/23.
[2023-12-12 07:50] VITALS: BMI 40.2
--- NOTE | 2023-12-12 07:52 | W.VEIN ---
Discharge Plan Discharge Disposition: Home, Self-Care Outpatient Diagnostics: VC Endovenous Ablation 1VeinLT (Routine) Timeframe: 2 Weeks Facility: [facility] - Location: [facility] Center Ordered By: Yasmany Houser Follow Up Appointments: Patient is currently waiting to schedule her next appointment and will call when she is ready to move forward. Plan of Treatment: EVLT of left leg GSV. Patient is currently on Eliquis. Print Language: Macanese
--- NOTE | 2023-12-12 10:53 | VEIN_ITS ---
Patient Name: GOLD FERRARA MR#: [id number] : 1940 Exam Date: 12/12/2023 Ordering Doctor: DR YASMANY HOUSER M.D. RADIOLOGY REPORT PROCEDURE: FACILITY EST [facility] - OFFICE VISIT FOLLOW UP COMPARISON: [facility] EST LMTD, 12/01/2023. FACILITY EST LMTD, 06/16/2023. PROGRESS NOTES: The patient reports some mild pain along the right lateral leg following micro foam chemical ablation. The patient did wear her compression stockings immediately following procedure, however is not currently wearing them due to ulcerations on her ankle and feet. Physical exam demonstrates scattered thrombosed varicose veins period gin demonstrated is a nonhealing wound along the right lateral ankle. The patient did report to me that she was on a medicine which can cause wounds for her myelodysplasia. Her ulcerations appear to be venous in origin, however I cannot be sure that they are not related to her medication. She was referred back to forging machine hand, Dr. Vivar for further questions Review of the ultrasound performed the same day demonstrates occlusive thrombus extending throughout the treated right leg varicose veins. There is a 8 cm segment of deep vein thrombus in the posterior tibial vein however the patient is already on anticoagulation. The patient would like to pause her treatments at this time, she will call our office when she is ready to schedule for the next procedure which is intravenous laser ablation of left great saphenous vein. VEIN/ Facility EST LMTD IMPRESSION: 1. Successful ablation of treated right leg varicose veins with an 8 cm segment of deep vein thrombus in a posterior tibial vein 2. Persistent incompetent left great saphenous vein. PLAN: Intravenous laser ablation left great saphenous vein Nurse notes, history and physical were reviewed and confirmed, see attached forms. The nurse was present throughout the physical exam and consultation Dictated by: Yasmany Houser MD on 12/12/2023 at 11:53 Approved by: Yasmany Houser MD on 12/12/2023 at 12:00
--- NOTE | 2023-12-12 10:53 | VEIN_ITS ---
Patient Name: GOLD FERRARA MR#: [id number] : 1940 Exam Date: 12/12/2023 Ordering Doctor: DR YASMANY HOUSER M.D. RADIOLOGY REPORT PROCEDURE: VC EXT VENOUS RT LMTD COMPARISON: None. INDICATIONS: I80.01 - Phlebitis and thrombophlebitis of superficial ve... TECHNIQUE: Lower extremity martinez scale and Duplex Doppler evaluation of the deep venous system from the inguinal ligament through the calf veins. FINDINGS: REGION: Right lower extremity. THROMBI: Negative for DVT. Positive for DVT in 8 cm segment of PTV from mid to distal calf. Varithena induced thrombus visualized at mid/med calf and mid/lat calf. COMPRESSIBILITY: Non-compressible segments corresponding to thrombus FLOW: Areas of no flow corresponding to thrombus OTHER: Multiple varicose veins remain. CONCLUSION: 8 cm segment of deep vein thrombus in a posterior tibial vein, removed from the popliteal vein. Dictated by: Yasmany Houser MD on 12/12/2023 at 11:25 Approved by: Yasmany Houser MD on 12/12/2023 at 11:27
== END 2023-12-12 10:52 | disposition home or self-care (01) ==
LOC: VC 10:51
PROVIDERS: PCP Radiology Diagnostic Radiology; Visit Provider Radiology Diagnostic Radiology
DX: I80.01 Phlebitis and thrombophlebitis of superficial vessels of right lower extremity (principal)
CPT/HCPCS: 93971; G0463